=== PATIENT | female | born 1975 | race Caucasian/White ===

== ENCOUNTER → 2017-02-27 | Outpatient (CLI) | payer BC ==
--- NOTE | 2017-02-28 09:51 | REP ---
Digital screening mammography with CAD: History: Baseline mammography. No breast symptoms. History of benign left breast biopsy in 1999. Findings: There is asymmetric soft tissue density in the upper outer quadrant of the right breast merits further evaluation. This measures 2.5 x 3.8 cm in greatest diameter. This is probably asymmetric a normal breast tissue. Diagnostic right breast mammography is recommended. No other significant finding is seen in either breast mammographically. No microcalcification or architectural distortion is seen. Impression: BI-RADS category 0 incomplete breast imaging. Asymmetric density upper outer quadrant right breast merits further evaluation. Diagnostic right breast mammography and focused right breast sonography recommended. This mammogram was interpreted with the aid of an FDA-approved computer-aided detection system. The patient states she/he had a clinical breast exam in June 2016. The patient letter being requested is M0. Signed by Trevin Lux MD 02/28/2017 02:10 P
== END ==
LOC: M RAD 16:13
PROVIDERS: ATTEND Registered Nurse
DX: Z12.31 Encounter for screening mammogram for malignant neoplasm of breast (principal)